=== PATIENT | male | born 1960 | race Asian ===

== ENCOUNTER 2020-06-07 18:25 | Emergency (ER) | payer OTHER ==
[~2020-06-07] VITALS: Ht 170.2 cm; Wt 136.1 kg
[2020-06-07 18:27] VITALS: BP 149/95; TEMP 98.3
[2020-06-07 19:45] LABS: PLATELET COUNT 303 K/uL (142-355)
[2020-06-07 19:56] LABS: POTASSIUM 3.6 mmol/L (3.6-5.2)
[2020-06-08] MEDS ORDERED: FURO40TA93 PO (02:06)
[2020-06-08] MEDS ORDERED: PANTOPRAZOLE 40MG TA PO (02:09)
[2020-06-08] MEDS ORDERED: POTASSIUM CL ER PO (02:13)
[2020-06-08] MEDS ORDERED: ELIQUIS5 MG PO (02:14)
[2020-06-08] MEDS ORDERED: LORA0.5T17 PO ×2 (02:16→02:27)
[2020-06-08] MEDS ORDERED: AMLODIPINE BESYLATE PO (02:17)
[2020-06-08] MEDS ORDERED: BUPROPION HYDR300 MG PO (02:19)
[2020-06-08] MEDS ORDERED: CLON0.1T16 PO (02:20)
[2020-06-08] MEDS ORDERED: DOCU SOFT100 MG PO (02:21)
[2020-06-08] MEDS ORDERED: MEDR10TA4 PO (02:22)
[2020-06-08] MEDS ORDERED: HYDRALAZINE25 MG PO (02:23)
[2020-06-08] MEDS ORDERED: TYLENOL325 MG PO (02:26)
[2020-06-08] MEDS ORDERED: OXYC5TAB53 PO (02:32)
[2020-06-08] MEDS ORDERED: TEMA15CA19 PO (02:35)
== END 2020-06-07 21:05 | disposition still patient (30) ==
LOC: ED 18:25
PROVIDERS: Family Medicine
DX: R46.89 Other symptoms and signs involving appearance and behavior (principal); Z11.52 Encounter for screening for COVID-19; Z04.6 Encounter for general psychiatric examination, requested by authority
CPT/HCPCS: 80053; 81000; 85027; 87635; 93005; 99283; J1885; U0003